=== PATIENT | female | born 1980 | race Caucasian/White ===

== ENCOUNTER 2017-05-25 12:14 | Emergency (ER) | payer OTHER ==
[~2017-05-25] VITALS: Ht 160 cm; Wt 80.0 kg
[2017-05-25 12:15] VITALS: BP 132/71; PULSE 70; RESP 16; TEMP 98.7; O2SAT 97
[2017-05-25 12:58] LABS: BILIRUBIN, URINE NEG (NEG); BLOOD, URINE SMALL (NEG); GLUCOSE,URINE NEG (NEG); KETONE, URINE NEG (NEG); MUCUS URINE FEW /lpf (OCC); NITRITE,URINE NEG (NEG); PH, URINE 5.5 (5.0-8.5); SQUAMOUS EPITHELIAL CELL URINE <1 /hpf (0-5); URINE COLOR YELLOW (YELLW/STRAW); URINE LEUKOCYTE ESTERASE NEG (NEG)
[2017-05-25 13:06] LABS: AUTOMATED NEUTROPHIL # 6.2 TH/MM3 (1.8-7.7); BASOPHIL % 0.3 % (0.0-2.0); EOSINOPHIL # 0.1 TH/MM3 (0-0.4); EOSINOPHIL % 0.6 % (0.0-4.0); HEMATOCRIT 43.7 % (35.0-46.0); HEMOGLOBIN 14.9 GM/DL (11.6-15.3); LYMPH % 29.2 % (9.0-44.0); LYMPHOCYTE # 2.7 TH/MM3 (1.0-4.8); MEAN CELL VOLUME 91.6 FL (80.0-100.0); MEAN CORPUSCULAR HEMOGLOBIN 31.3 PG (27.0-34.0); MEAN CORPUSCULAR HGB CONC 34.2 % (32.0-36.0); MONO % 4.2 % (0.0-8.0); MONOCYTE # 0.4 TH/MM3 (0-0.9); NEUT % 65.7 % (16.0-70.0); PLATELET COUNT 377 TH/MM3 (150-450); RED BLOOD COUNT 4.77 MIL/MM3 (4.00-5.30); RED CELL DISTRIBUTION WIDTH 13.1 % (11.6-17.2); WHITE BLOOD COUNT 9.4 TH/MM3 (4.0-11.0)
[2017-05-25 13:25] LABS: CALCIUM 9.1 MG/DL (8.5-10.1); CREATININE 0.7 MG/DL (0.50-1.00)
--- NOTE | 2017-05-25 13:58 | PD ---
HPI Chief Complaint: Related Problem Time Seen by Provider: 13:29 Travel History International Travel<30 days: No Contact w/Intl Traveler<30days: No Traveled to known affect area: No History of Present Illness HPI This is a 36-year-old female who presents for evaluation of abdominal cramping, vaginal bleeding. She reports that she developed nausea, breast soreness 2 days ago. She took 5 [id number] tests which were all positive. She woke up this morning with abdominal cramping as well as focal pain in left lower quadrant. The pain is sharp and worse with movement, somewhat alleviated when lying down. She has associated vaginal bleeding. She denies unusual discharge, dysuria, flank pain, current nausea or vomiting. She has no other complaints at this time. Her last menstrual period was April. [facility] Past Medical History Medical History: Denies Significant Hx ?: LMP: 04/23/2017 : 6 Para: 3 Miscarriage: 3 Social History Alcohol Use: No Tobacco Use: No Substance Use: No Allergies-Medications (Allergen,Severity, Reaction): Coded Allergies: No Known Allergies (Unverified , 05/25/17) Reported Meds & Prescriptions Reported Meds & Active Scripts Active Naproxen 500 Mg Tab 500 Mg PO BID 10 Days Review of Systems Except as stated in HPI: all other systems reviewed are Neg Physical Exam Narrative GENERAL: Well-developed well-nourished female in no acute distress SKIN: Warm and dry. HEAD: Atraumatic. Normocephalic. EYES: Pupils equal and round. No scleral icterus. No injection or drainage. ENT: No nasal bleeding or discharge. Mucous membranes pink and moist. NECK: Trachea midline. No JVD. CARDIOVASCULAR: Regular rate and rhythm. No murmur appreciated. RESPIRATORY: No accessory muscle use. Clear to auscultation. Breath sounds equal bilaterally. GASTROINTESTINAL: Abdomen soft, mild focal left lower quadrant tenderness without guarding. Pelvic examination in the presence of a female nurse reveals MUSCULOSKELETAL: No obvious deformities. No clubbing. No cyanosis. No edema. NEUROLOGICAL: Awake and alert. No obvious cranial nerve deficits. Motor grossly within normal limits. Normal speech. PSYCHIATRIC: Appropriate mood and affect; insight and judgment normal. Data Data Last Documented VS Vital Signs Date Time Temp Pulse Resp B/P (MAP) Pulse Ox O2 Delivery O2 Flow Rate FiO2 05/25/17 12:15 98.7 70 16 132/71 (91) 97 Orders Orders Beta Hcg (Quant/Titer) (05/25/17 12:28) Complete Blood Count With Diff (05/25/17 12:28) Basic Metabolic Panel (Bmp) (05/25/17 12:28) Complete Rh (05/25/17 12:28) Urinalysis - C+S If Indicated (05/25/17 12:28) Ed Urine Pregnancytest Poc (05/25/17 12:28) Us Pelvis (Ques Pr/Ect)W Trans (05/25/17 ) Ibuprofen (Motrin) (05/25/17 15:15) Ed Discharge Order (05/25/17 15:09) Labs Laboratory Tests Test 05/25/17 12:35 05/25/17 12:52 Urine Color YELLOW Urine Turbidity CLEAR Urine pH 5.5 Urine Specific [place] 1.016 Urine Protein NEG mg/dL Urine Glucose (UA) NEG mg/dL Urine Ketones NEG mg/dL Urine Occult Blood SMALL Urine Nitrite NEG Urine Bilirubin NEG Urine Urobilinogen LESS THAN 2.0 MG/DL Urine Leukocyte Esterase NEG Urine RBC 3 /hpf Urine WBC 1 /hpf Urine Squamous Epithelial Cells <1 /hpf Urine Mucus FEW /lpf Microscopic Urinalysis Comment CULT NOT INDICATED White Blood Count 9.4 TH/MM3 Red Blood Count 4.77 MIL/MM3 Hemoglobin 14.9 GM/DL Hematocrit 43.7 % Mean Corpuscular Volume 91.6 FL Mean Corpuscular Hemoglobin 31.3 PG Mean Corpuscular Hemoglobin Concent 34.2 % Red Cell Distribution Width 13.1 % Platelet Count 377 TH/MM3 Mean Platelet Volume 7.0 FL Neutrophils (%) (Auto) 65.7 % Lymphocytes (%) (Auto) 29.2 % Monocytes (%) (Auto) 4.2 % Eosinophils (%) (Auto) 0.6 % Basophils (%) (Auto) 0.3 % Neutrophils # (Auto) 6.2 TH/MM3 Lymphocytes # (Auto) 2.7 TH/MM3 Monocytes # (Auto) 0.4 TH/MM3 Eosinophils # (Auto) 0.1 TH/MM3 Basophils # (Auto) 0.0 TH/MM3 CBC Comment DIFF FINAL Differential Comment Blood Urea Nitrogen 12 MG/DL Creatinine 0.70 MG/DL Random Glucose 92 MG/DL Calcium Level 9.1 MG/DL Sodium Level 140 MEQ/L Potassium Level 4.0 MEQ/L Chloride Level 106 MEQ/L Carbon Dioxide Level 27.0 MEQ/L Anion Gap 7 MEQ/L Estimat Glomerular Filtration Rate 94 ML/MIN Human Chorionic Gonadotropin, Quant 2 MIU/ML MDM Medical Decision Making Medical Screen Exam Complete: Yes Emergency Medical Condition: Yes Medical Record Reviewed: Yes Differential Diagnosis Complete , missed , incomplete , inevitable , ectopic , Threatened Narrative Course 36-year-old female who woke up today with abdominal cramping as well as more focal pain in left lower quadrant of the abdomen with associated vaginal bleeding today. She had 5 positive home test 2 days ago. Her last menstrual period was April 23. Blood work was obtained triage revealing a O + blood type. She had a negative urine test in triage. Her beta hCG quantitative was 2. Given her focal left lower quadrant pain, a formal ultrasound will be obtained. Ultrasound results revealed CONCLUSION: 1. No intrauterine is identified. 2. Abnormal right ovary that is enlarged and heterogeneous. Question whether some of the finding that is associated with the ovary could be an abnormally dilated fallopian tube containing hypoechoic material. Suggest followup ultrasound to assess for change. The patient has some focal pain in the left lower quadrant on the right lower quadrant. Her symptoms and history are certainly consistent with miscarriage of an early . Given the abnormal ultrasound findings, it was recommended the patient follow-up with an retail sales clerk as an outpatient for repeat ultrasound. Findings were discussed with her and she will be given a copy of her ultrasound results as well as a prescription for naproxen. She is stable for discharge. Diagnosis Primary Impression: Miscarriage Referrals: [employer] Additional Instructions: Naproxen as needed for cramping pain. Follow-up with an retail sales clerk in the next 3-5 days likely for repeat outpatient ultrasound imaging. Return for any acutely neuro worsening symptoms such as severe pain, fevers. Med/Other Pt SpecificInfo: Prescription(s) given Scripts Naproxen (Naproxen) 500 Mg Tab 500 MG PO BID for 10 Days, #20 TAB 0 Refills Prov: Soila Adams MD 05/25/17 Disposition: 01 DISCHARGE HOME Condition: Stable Wes Vela May 25, 2017 13:58
--- NOTE | 2017-05-25 14:57 | RADRPT ---
EXAM DATE/TIME: 05/25/2017 13:50 [place] COMPARISON: No previous studies available for comparison. INDICATIONS : Pelvic pain/bleeding. LAB(S): [facility] MEDICAL HISTORY : . SURGICAL HISTORY : None. ENCOUNTER: Initial ACUITY: 1 week PAIN SCORE: 4/10 LOCATION: Bilateral pelvis MEASUREMENTS: UTERUS: 8.4 x 5.5 x 4.1 cm ENDOMETRIAL STRIPE: 6 mm RIGHT OVARY: 4.9 x 4.7 x 3.2 cm LEFT OVARY: 3.2 x 1.5 x 2.0 cm FREE FLUID: No FINDINGS: UTERUS: The myometrium has homogeneous echotexture without mass. No intrauterine is identified. Th ere is no gestational sac seen. RIGHT OVARY: The right ovary has an abnormal appearance being very heterogeneous in echotexture and much larger th an the left ovary. LEFT OVARY: Ovary contains no mass or significant cystic lesion. MISCELLANEOUS: No free fluid. CONCLUSION: 1. No intrauterine is identified. 2. Abnormal right ovary that is enlarged and heterogeneous. Question whether some of the finding that is associated with the ovary could be an abnormally dilated fallopian tube containing hypoechoic mat erial. Suggest followup ultrasound to assess for change. Jarocho Tapia MD on May 25, 2017 at 14:43 Board Certified Radiologist. This report was verified electronically.
[2017-05-25] MEDS ORDERED: NAPR500T2 PO (15:08)
[2017-05-25] MEDS ORDERED: IBUPROFEN 600 MG TAB PO ONE (15:15)
[2017-05-25 15:34] VITALS: BP 126/68
== END 2017-05-25 15:35 | disposition home or self-care (01) ==
LOC: NEPD 12:14
DX: O03.9 Complete or unspecified spontaneous abortion without complication (principal); R11.0 Nausea
CPT/HCPCS: 76700; 76817; 80048; 81001; 84702; 84703; 85025; 86901; 99284